=== PATIENT | male | born 1955 | race Caucasian/White ===

== ENCOUNTER → 2017-05-16 | Day surgery (SDC) | payer BC ==
[2017-05-15 17:30] VITALS: BMI 25.7
[~2017-05-16] MED LIST: Dexamethasone 20 MG/5 ML VIAL ONE; EPINEPHrine 1 MG/ML AMP ONE; Fentanyl 250 MCG/5 ML VIAL ONE; Lidocaine 1% PF 5 ML VIAL ONE; Lidocaine 4% Topical Sol 50 ML BOT ONE; Ondansetron HCl/PF 4 MG/2 ML Vial ONE; Propofol 200 MG/20 ML VIAL ONE; Succinylcholine Chloride 20 MG/ML 10 ml SYRINGE FS ONE
--- NOTE | 2017-05-16 12:29 | OP ---
DATE OF PROCEDURE: 05/16/2017 SURGEON: Dr. Jose M Montilla PREOPERATIVE DIAGNOSES: Dysphagia and suspicious hypopharyngeal lesion. POSTOPERATIVE DIAGNOSES: 1. Dysphagia. 2. Reflux. PROCEDURE PERFORMED: Direct laryngoscopy, rigid esophagoscopy. PROCEDURE IN DETAIL: After consent was obtained, the patient was identified, brought to the operatin g room and placed on the table in supine position. General anesthesia was obtained with a #6.5 endot no tube and the patient was positioned for laryngoscopy. The patient underwent systematic laryn geal evaluation with special attention to the piriform sinuses. A small whitish lesion was identifie d that was nonerythematous and plaque-like in his left piriform sinus. There was nothing suspicious for malignancy. His right piriform sinus was clear. Esophageal inlet and proximal cervical esophago scopy was within normal limits. The remainder of his head and neck examination was within normal norris its. IMPRESSION: Reflux related changes were found with redundant mucosa in the esophagus and esophageal inlet with cobblestoning and edema. The patient was awakened, extubated, and taken to recovery room where he remained in stable condition prior to discharge home.
--- NOTE | 2017-05-16 14:34 | EKG ---
Test Reason : PREOP Blood Pressure : / mmHG Vent. Rate : 053 BPM Atrial Rate : 053 BPM P-R Int : 156 ms QRS Dur : 082 ms QT Int : 410 ms P-R-T Axes : 061 044 057 degrees QTc Int : [address] elevation, consider early repolarization Otherwise normal ECG Confirmed by BLU BONILLA ([id number]) on 05/16/2017 2:34:14 PM Referred By: APOLINAR Confirmed By:BLU BONILLA
== END ==
LOC: SDC 06:52
PROVIDERS: ATTEND Specialist
PROC: 0CJS8ZZ Inspection of Larynx, Via Natural or Artificial Opening Endoscopic (ICD-10-PCS; principal; 2017-05-16)
DX: K21.9 Gastro-esophageal reflux disease without esophagitis (principal); R13.10 Dysphagia, unspecified; Z98.890 Other specified postprocedural states; Z87.891 Personal history of nicotine dependence
CPT/HCPCS: 93005; 93010; J0171; J1100; J2001; J2405; J2704; J3010